=== PATIENT | male | born 1975 | race African-American/Black ===

== ENCOUNTER 2016-03-15 20:02 | Emergency (ER) | payer OTHER ==
[~2016-03-15] VITALS: Ht 188 cm; Wt 109.1 kg
[~2016-03-15 20:02] MED LIST: ASPIRIN 81M81 MG/TA2 PO; ATENOLOL100 MG PO; ATENOLOL50 MG PO; BACTRIM DS 8001 TAB PO; CRESTOR 10MG10 MG PO; DILTIAZEM30 MG; DILTIAZEM30 MG PO; FLEXERIL 1010 MG/TAB PO; HCTZ; HCTZ 25MG TAB25 MG PO; HCTZ 25MG25 MG PO; HYDROCHLOR50 MG PO; HYTRIN2 MG PO; K-DUR20 MEQ PO; KLOR-CON M1010 MEQ PO; LOPRESSOR50 MG PO; LORTAB 5/500 501 TAB PO; MICARDIS20 MG PO; MICRO-K 1010 MEQ PO; NAPROSYN500 MG PO; NORCO 325 MG-51 TAB PO; NORCO 325 MG-7.1 TAB PO; NORVASC 10MG10 MG PO; NORVASC5 MG PO; PEN-VEE K500 MG PO; PRAVASTATIN40 MG PO; PREDNISONE20 MG PO; TENORMIN 5050 MG/TAB PO; TENORMIN100 MG PO; ZITHROMAX Z PA250 MG PO; [UNRECOGNIZED DRUG - OTHER]
[2016-03-15 20:08] VITALS: TEMP 99.3
[2016-03-15] MEDS ORDERED: TENORMIN 5050 MG/TAB PO (20:44)
[2016-03-15] MEDS ORDERED: NORVASC 10MG10 MG PO (20:44)
[2016-03-15 21:22] VITALS: BP 144/93; PULSE 72
== END 2016-03-15 21:23 | disposition home or self-care (01) ==
LOC: COL.ER 20:02
DX: I10 Essential (primary) hypertension (principal); Z76.0 Encounter for issue of repeat prescription; F17.210 Nicotine dependence, cigarettes, uncomplicated

== ENCOUNTER 2017-06-28 12:31 | Emergency (ER) | payer SELFPAY ==
[~2017-06-28] VITALS: Ht 188 cm; Wt 100.0 kg
[2017-06-28 12:37] VITALS: TEMP 98.8
[2017-06-28] MEDS ORDERED: PHARMASSURE GA500 MG PO (12:55)
[2017-06-28 13:29] LABS: BASO % 0.6 % (0.0-2.0); EOS % 0.8 % (0-4.0); GRAN # 2.9 (1.4-6.5); GRAN % 59.5 % (42.2-75.2); HEMATOCRIT 41.4 % (42.0-52.0); LYMPH # 1.5 (1.2-3.4); LYMPH % 30.3 % (20.0-51.0); MEAN CELL VOLUME 83 fl (80.0-100.0); MEAN CORPUSCULAR HEMOGLOBIN 28 pg (27.0-31.0); MEAN CORPUSCULAR HGB CONC 34 g/dl (33.0-37.0); MEAN PLATELET VOLUME 8.9 fl (7.4-10.4); MONO # 0.4 (0.1-0.6); MONO % 8.6 % (1.7-9.3); PLATELET COUNT 249 K/mm3 (130-400); RED BLOOD COUNT 4.98 M/mm3 (4.20-5.60); REDCELL DISTRIBUTION WIDTH-CV 13.5 % (11.5-14.5)
[2017-06-28 13:35] LABS: ALANINE AMINOTRANSFERASE 29 U/L (21-72); ALBUMIN 3.9 gm/dL (3.5-5.0); ALKALINE PHOSPHATASE 79 U/L (50-136); ANION GAP 11 mmol/L (7-16); AST,SGOT 21 U/L (15-37); BILIRUBIN,TOTAL 1.1 mg/dL (0.0-1.0); BLOOD UREA NITROGEN 10 mg/dL (9-20); CALCIUM 9.2 mg/dL (8.4-10.2); CARBON DIOXIDE 31 mmol/L (22-30); CHLORIDE 101 mmol/L (98-107); CREATININE, serum 0.87 mg/dL (0.66-1.25); GLUCOSE 87 mg/dL (74-106); LIPASE 37 U/L (23-300); POTASSIUM 3.4 mmol/L (3.4-5.0); SODIUM 143 mmol/L (137-145); TOTAL PROTEIN 7.6 gm/dL (6.4-8.2)
[2017-06-28 13:50] LABS: TROPONIN-I < 0.012 ng/mL (0.000-0.034)
[2017-06-28] MEDS ORDERED: HCTZ12.5TAB PO (15:04)
[2017-06-28 15:11] VITALS: BP 148/98; PULSE 50
== END 2017-06-28 15:12 | disposition home or self-care (01) ==
LOC: COL.ER 12:31
PROVIDERS: Physician Assistant
DX: R07.89 Other chest pain (principal); R10.13 Epigastric pain; I10 Essential (primary) hypertension; F17.210 Nicotine dependence, cigarettes, uncomplicated; Z86.79 Personal history of other diseases of the circulatory system; Z82.49 Family history of ischemic heart disease and other diseases of the circulatory system
CPT/HCPCS: J2270

== ENCOUNTER 2017-07-29 19:48 | Emergency (ER) | payer SELFPAY ==
[~2017-07-29] VITALS: Ht 188 cm; Wt 106.4 kg
[~2017-07-29 19:48] MED LIST changes: +HCTZ12.5TAB PO; +PHARMASSURE GA500 MG PO
[2017-07-29 19:51] VITALS: BP 158/98; TEMP 98.9
[2017-07-29] MEDS ORDERED: TYLENOL 500MG500 MG PO (20:05)
[2017-07-29] MEDS ORDERED: BACTRIM DS 8001 TAB PO (20:36)
[2017-07-29 20:48] VITALS: PULSE 70
== END 2017-07-29 20:49 | disposition home or self-care (01) ==
LOC: COL.ER 19:48
DX: L02.416 Cutaneous abscess of left lower limb (principal)

== ENCOUNTER 2018-06-02 18:57 | Emergency (ER) | payer SELFPAY ==
[~2018-06-02] VITALS: Ht 188 cm; Wt 107.3 kg
[~2018-06-02 18:57] MED LIST changes: +TYLENOL 500MG500 MG PO
[2018-06-02 19:02] VITALS: BP 140/87; TEMP 98.3
[2018-06-02] MEDS ORDERED: NORVASC 10MG10 MG PO (20:32)
[2018-06-02] MEDS ORDERED: TENORMIN100 MG PO (20:32)
[2018-06-02] MEDS ORDERED: ALDACTONE 25MG25 M1 PO (20:32)
[2018-06-02] MEDS ORDERED: CEPHALEXIN500 M1 PO (20:35)
[2018-06-02] MEDS ORDERED: LIDODERM 5% PATC1 EA TP (20:35)
[2018-06-02] MEDS ORDERED: FLEXERIL 1010 MG/TAB PO (20:35)
[2018-06-02 20:53] VITALS: PULSE 68
== END 2018-06-02 20:54 | disposition home or self-care (01) ==
LOC: COL.ER 18:57
DX: G89.29 Other chronic pain (principal); M54.5 Low back pain; K08.89 Other specified disorders of teeth and supporting structures; I10 Essential (primary) hypertension; M54.9 Dorsalgia, unspecified; F17.210 Nicotine dependence, cigarettes, uncomplicated; Z88.8 Allergy status to other drugs, medicaments and biological substances
CPT/HCPCS: J1885

== ENCOUNTER → 2023-04-21 | Outpatient (CLI) | payer MEDICAID ==
[~2023-04-21] MED LIST changes: +ALDACTONE 25MG25 M1 PO; +CEPHALEXIN500 M1 PO; +LIDODERM 5% PATC1 EA TP
[2023-04-21 10:16] LABS: COLLECTION METHOD CLEAN CATCH
[2023-04-21 10:26] LABS: URINE APPEARANCE CLOUDY (CLEAR/HAZY); URINE BLOOD NEGATIVE (NEGATIVE); URINE COLOR YELLOW (YELLOW); URINE GLUCOSE NEGATIVE (NEGATIVE); URINE KETONE NEGATIVE (NEGATIVE); URINE NITRATE NEGATIVE (NEGATIVE); URINE PROTEIN(semi-quant) TRACE (NEGATIVE)
[2023-04-21 10:48] LABS: BASO % 0.5 % (0.0-2.0); EOS # 0.1 K/mm3 (0.0-0.7); EOS % 1.3 % (0.0-4.0); GRAN # 3.3 K/mm3 (1.4-6.5); GRAN % 59.2 % (42.2-75.2); HEMATOCRIT 42.6 % (42.0-52.0); HEMOGLOBIN 14.5 g/dl (13.5-18.0); LYMPH # 1.9 K/mm3 (1.2-3.4); LYMPH % 33.6 % (20.0-51.0); MEAN CELL VOLUME 83 fl (80.0-100.0); MEAN CORPUSCULAR HEMOGLOBIN 28 pg (27-31); MEAN CORPUSCULAR HGB CONC 34 g/dl (33.0-37.0); MEAN PLATELET VOLUME 9.5 fl (7.4-10.4); MONO # 0.3 K/mm3 (0.1-0.6); PLATELET COUNT 231 K/mm3 (130-400); RED BLOOD COUNT 5.15 M/mm3 (4.20-5.60)
[2023-04-21 11:14] LABS: ALBUMIN 3.9 gm/dL (3.5-5.0); CALCIUM 9.4 mg/dL (8.4-10.2); CREATININE, serum 0.88 mg/dL (0.72-1.25); MAGNESIUM 1.8 mg/dL (1.6-2.6); POTASSIUM 3.1 mmol/L (3.5-4.5); TOTAL PROTEIN 6.9 gm/dL (6.2-8.1); URIC ACID 5.1 mg/dL (3.5-7.2)
[2023-04-21 11:28] LABS: THYROID STIMULATING HORMONE 1.454 uIU/mL (0.350-4.940)
[2023-04-22 00:02] LABS: CORTISOL, AM (0800) 7 ug/dL (3-20)
[2023-04-23 01:26] LABS: ADRENOCORTICOTROPIC HORMONE 14 pg/mL (5-27)
[2023-04-27 20:08] LABS: RENIN,PLASMA <0.167 ng/mL/hr (())
== END ==
LOC: COL.LAB 09:00
PROVIDERS: Internal Medicine Nephrology
DX: E87.6 Hypokalemia (principal); G47.30 Sleep apnea, unspecified; I15.8 Other secondary hypertension; R51.9 Headache, unspecified

== ENCOUNTER 2023-11-25 20:30 | Emergency (ER) | payer MEDICAID ==
[~2023-11-25] VITALS: Ht 188 cm; Wt 118.2 kg
[2023-11-25 20:40] VITALS: TEMP 99.6
[2023-11-25] MEDS ORDERED: NAPROSYN500 MG PO (22:42)
[2023-11-25 22:53] VITALS: BP 172/101; PULSE 62
== END 2023-11-25 22:57 | disposition home or self-care (01) ==
LOC: COL.ER 20:30
DX: S93.402A Sprain of unspecified ligament of left ankle, initial encounter (principal); X50.1XXA Overexertion from prolonged static or awkward postures, initial encounter; F17.200 Nicotine dependence, unspecified, uncomplicated